=== PATIENT | female | born 2005 | race Caucasian/White ===

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

== ENCOUNTER 2024-03-15 08:32 | Emergency (ER) | payer MEDICAID ==
[~2024-03-15] VITALS: Ht 156.2 cm; Wt 53.6 kg
[2024-03-15 08:32] VITALS: TEMP 98.6
[2024-03-15 10:15] VITALS: BP 92/57; PULSE 75; RESP 16; O2SAT 95
== END 2024-03-15 10:16 | disposition home or self-care (01) ==
LOC: ER 08:32
DX: S91.311A Laceration without foreign body, right foot, initial encounter (principal); M79.671 Pain in right foot; J45.909 Unspecified asthma, uncomplicated; W04.XXXA Fall while being carried or supported by other persons, initial encounter; Y93.89 Activity, other specified; Y92.89 Other specified places as the place of occurrence of the external cause; Y99.8 Other external cause status
CPT/HCPCS: 73630; 99283; L3260